=== PATIENT | female | born 1950 | race Two or more races ===

== ENCOUNTER 2025-05-17 15:42 | Outpatient (CLI) | payer MEDICARE, BC | END 2025-05-17 17:00 | disposition home or self-care (01) | LOC: Rad HDHVI 15:42 | PROVIDERS: ATTEND Internal Medicine Cardiovascular Disease | DX: Z01.810 Encounter for preprocedural cardiovascular examination (principal); I35.1 Nonrheumatic aortic (valve) insufficiency | CPT/HCPCS: 93306 ==

== ENCOUNTER 2025-05-23 09:05 | Outpatient (CLI) | payer MEDICARE, BC ==
[~2025-05-23] VITALS: Ht 152.4 cm; Wt 70.8 kg
== END 2025-05-23 17:00 | disposition home or self-care (01) ==
LOC: Rad HDHVI 09:05
PROVIDERS: ATTEND Internal Medicine Cardiovascular Disease
DX: Z01.810 Encounter for preprocedural cardiovascular examination (principal); I10 Essential (primary) hypertension; I49.1 Atrial premature depolarization; R00.0 Tachycardia, unspecified; E78.00 Pure hypercholesterolemia, unspecified; J45.909 Unspecified asthma, uncomplicated; Z82.49 Family history of ischemic heart disease and other diseases of the circulatory system
CPT/HCPCS: 78452; 93017; A9500; 96374

== ENCOUNTER 2025-06-13 07:23 | Inpatient (IN) | payer MEDICARE, BC ==
[2025-06-08 15:43] LABS: Hematocrit 36.7 % (36.0-46.0); Hemoglobin 12.4 g/dL (12.2-16.2); Mean Corpuscular Hemoglobin 28.7 pg (28.0-32.0); Mean Corpuscular Volume 84.9 fL (80.0-100.0); Nucleated Red Blood Cells % 0.1 %
[2025-06-08 15:52] LABS: Urine Protein, UAD TRACE (Negative)
[2025-06-08 16:05] LABS: INR 0.97 (0.9-1.15); Partial Thromboplastin Time 25.4 SEC (24.5-34.5); Prothrombin Time 10.3 sec (9.3-11.8)
[2025-06-08 16:22] LABS: Alanine Aminotransferase 23 U/L (7-40); Albumin 4.6 g/dL (3.2-4.8); Alkaline Phosphatase 82 U/L (46-116); Anion Gap 11 (5-15); BUN/Creatinine Ratio 21.1 (10.0-20.0); Bilirubin, Total 0.5 mg/dL (0.2-1.0); Blood Urea Nitrogen 16 mg/dL (9-23); Calcium 10.1 mg/dL (8.7-10.4); Carbon Dioxide 28 mmol/L (20-31); Glucose 87 mg/dL (74-106); Potassium 4.3 mmol/L (3.5-5.1); Total Protein 7.2 g/dL (5.7-8.2)
[2025-06-08 16:23] LABS: Chloride 108 mmol/L (98-107); Sodium 147 mmol/L (136-145)
[~2025-06-13] VITALS: Ht 152.4 cm; Wt 70.0 kg
[2025-06-13] VITALS (9 sets, daily range): BP systolic 114–132; BP diastolic 72–85; PULSE 72–98; RESP 12–18; TEMP 98–98.3; O2SAT 96–100
[~2025-06-13 07:23] MED LIST: ALBUAER3 IN; LISI20TA56 PO; LOVA20TA4 PO; MOME1AER3 IN
[2025-06-13] MEDS: ceFAZolin 2 GM/D5W50ml 50 ML IV ONE (07:35)
[2025-06-13] MEDS ORDERED: MIDAZOLAM HCL 2MG/2ML 2ml VIAL (1mg/ml) ONE (07:49)
[2025-06-13] MEDS ORDERED: HYDROmorphone HCL 2 MG/ML VL/or syr ONE (07:49)
[2025-06-13] MEDS ORDERED: fentaNYL CITRATE 100 MCG/2 ML VL ONE (07:49)
[2025-06-13] MEDS ORDERED: ROCURONIUM 10MG/ML 10ML VIAL IV ONE (07:50)
[2025-06-13] MEDS ORDERED: KETAMINE 50mg/ML 1ml syringe ONE (07:50)
[2025-06-13] MEDS ORDERED: GLYCOPYRROLATE 0.2 MG/ML 1ML VIAL ONE (07:50)
[2025-06-13] MEDS ORDERED: PHENYLEPHRINE HCL 10 MG/ML VL ONE (07:50)
[2025-06-13] MEDS ORDERED: PROPOFOL 10 MG/ML 20 ML IV ONE (07:50)
[2025-06-13] MEDS ORDERED: ONDANSETRON HCL 4 MG/2 ML VIAL ONE (07:50)
[2025-06-13] MEDS ORDERED: LIDOCAINE 2% (LOCAL ANESTH.) PF 5ml SDV ONE (07:50)
[2025-06-13] MEDS: BUPIVACAINE 0.5% P/F INJ 10 ML VIAL ONE (08:41)
[2025-06-13] MEDS: LIDOCAINE W/ EPINEPHRINE 1% 20ML VIAL ONE (08:41)
[2025-06-13] MEDS ORDERED: SUGAMMADEX 200mg/2ml Vial (100MG/ML) IV ONE (09:11)
[2025-06-13] MEDS: D5W/SOD CHL 0.45%/KCL 20MEQ 1,000 ML IV SCH (09:30)
[2025-06-13] MEDS ORDERED: HYDROmorphone HCL 2 MG/ML VL/or syr IV PRN ×2 (09:30→10:15)
[2025-06-13] MEDS ORDERED: ONDANSETRON HCL 4 MG/2 ML VIAL IV PRN (09:30)
[2025-06-13] MEDS: PANTOPRAZOLE 40 MG/10 ML VIAL INJ IV SCH (10:00)
--- NOTE | 2025-06-13 10:17 | DVHOP ---
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 SURGEON: Geoff Garcia MD CLIENT TECHNICAL PROFESSIONAL: Dg Villa. ANESTHESIA: General endotracheal. ANESTHESIOLOGIST: Dr. Lopez. PROCEDURES: Left mastectomy and left axillary lymph node sampling. DESCRIPTION OF PROCEDURE: Under adequate anesthesia, with ____ prepped and draped and infiltrated with 0.25% Marcaine and 0.5% Xylocaine with epinephrine mixture, incision was made centered around the nipple-areolar complex of the left breast, with a palpable lesion included in the field of dissection. The incision was deepened with electrocautery through adipose tissue. The breast tissue was from the surrounding skin. The mass in the left breast was very adjacent to the skin and necessitated very thin flap formation. The patient's breast tissue was then traced onto the anterior chest wall and elevated from the pectoral muscles. Dissection was carried out medially, inferiorly, superiorly, and laterally in a customary fashion. The breast was removed and marked with a long suture at the 12 o'clock and a short suture at the 3 o'clock location and submitted for histopathologic examination. Through the same incision, the left axillary sampling was conducted. Several adipose tissue surrounded with what was felt to be lymph nodes were sampled and submitted for histopathologic examination. Subsequently, the wound was irrigated with warm saline, which was aspirated. Two Kian Art drains were inserted through a separate incision and secured with a 2-0 nylon suture. Closure accomplished using Monocryl sutures, Dermabond glue and Steri-Strips. The patient remained stable throughout the procedure and left the operating room following an accurate needle and sponge count. No family members were present in the waiting room. MD DUANE Gutierrez/KAI/VIC TID: [id number] RECEIPT: [id number]
[2025-06-13] MEDS: ACETAMINOPHEN IV 100 ML IV ONE (10:34)
[2025-06-13] MEDS: ACETAMINOPHEN IV 1000 MG/100ML (10MG/ML) IV ONE (10:39)
[2025-06-13] MEDS: ONDANSETRON HCL 4 MG/2 ML VIAL IV PRN (11:44)
[2025-06-13] MEDS ORDERED: NITROGLYCERIN 0.4 MG SL TAB SL PRN (11:45)
[2025-06-13] MEDS ORDERED: MORPHINE SULFATE INJ 2 MG/ml SYRG IV PRN (11:45)
--- NOTE | 2025-06-13 11:58 | DVHHP2 ---
Review of Systems Allergies: Coded Allergies: Codeine (Unverified Allergy, Intermediate, rash, 06/08/25) Doxycycline (Verified Allergy, Unknown, 06/13/25) Medications Current Medications Medications Dose Ordered Sig/Jess Route Start Time Stop Time Status Last Admin Dose Admin Potassium Chloride/Dextrose/ Sod Cl 1,000 ml @ 100 mls/hr Q10H IV 06/13/25 09:30 Cefazolin Sodium/ Dextrose 50 ml @ 50 mls/hr Q8HR IV 06/13/25 14:00 Hydromorphone HCl 1 mg Q3HPRN PRN IV 06/13/25 09:30 Ondansetron HCl 4 mg Q4HPRN PRN IV 06/13/25 09:30 Pantoprazole Sodium 40 mg DAILY IV 06/13/25 10:00 Oxycodone HCl 5 mg ONCE PRN PO 06/13/25 10:15 Nitroglycerin 0.4 mg Q5MINP PRN SL 06/13/25 11:45 UNV Morphine Sulfate 2 mg Q30M PRN IV 06/13/25 11:45 UNV Exam Vital Signs Vital Signs Date Time Temp Pulse Resp B/P (MAP) Pulse Ox O2 Delivery O2 Flow Rate FiO2 06/13/25 11:18 Nasal Cannula 4.0 98 06/13/25 11:14 71 12 156/78 (104) 99 06/13/25 09:59 97.7 97.7 Labs/Xrays Labs Test 06/08/25 14:52 Range/Units White Blood Count 5.8 4.4-10.8 10^3/uL Red Blood Count 4.32 4.0-5.20 10^6/uL Hemoglobin 12.4 12.2-16.2 g/dL Hematocrit 36.7 36.0-46.0 % Mean Corpuscular Volume 84.9 80.0-100.0 fL Mean Corpuscular Hemoglobin 28.7 28.0-32.0 pg Mean Corpuscular Hemoglobin Concent 33.9 32.0-36.0 g/dL Red Cell Distribution Width 13.9 11.8-14.3 % Platelet Count 215 140-450 10^3/uL Mean Platelet Volume 8.0 6.9-10.8 fL Neutrophils (%) (Auto) 61.4 37.0-80.0 % Lymphocytes (%) (Auto) 27.4 10.0-50.0 % Monocytes (%) (Auto) 6.6 0.0-12.0 % Eosinophils (%) (Auto) 3.8 0.0-7.0 % Basophils (%) (Auto) 0.8 0.0-2.0 % Neutrophils # (Auto) 3.6 1.6-8.6 10 ^3/uL Lymphocytes # (Auto) 1.6 0.4-5.4 10 ^3/uL Monocytes # (Auto) 0.4 0-1.3 10 ^3/uL Eosinophils # (Auto) 0.2 0-0.8 10 ^3/uL Basophils # (Auto) 0 0-0.2 10 ^3/uL Nucleated Red Blood Cells 0.1 % Prothrombin Time 10.3 9.3-11.8 sec Prothrombin Time INR 0.97 0.9-1.15 Activated Partial Thromboplast Time 25.4 24.5-34.5 SEC Urine Color Yellow Yellow Urine Clarity Clear Clear Urine pH 5.5 5.0-9.0 Urine Specific [place] 1.026 1.001-1.035 Urine Protein Trace H Negative Urine Ketones Negative Negative Urine Blood Negative Negative /uL Urine Nitrite 1+ H Negative Urine Bilirubin Negative Negative Urine Urobilinogen Normal Negative mg/dL Urine Leukocyte Esterase Trace Negative /uL Urine RBC 2 0 - 4 /hpf Urine Microscopic WBC 8 H 0-5 /HPF Urine Squamous Epithelial Cells Mod <5 /hpf Urine Calcium Oxalate Crystals Mod None Seen Urine Bacteria Mod H None Seen /hpf Urine Hyaline Casts Few 0 - 2 /lpf Urine Mucus Few None Seen Urine Glucose Normal Normal mg/dL Sodium Level 147 H 136-145 mmol/L Potassium Level 4.3 3.5-5.1 mmol/L Chloride Level 108 H 98-107 mmol/L Carbon Dioxide Level 28 20-31 mmol/L Anion Gap 11 5-15 Blood Urea Nitrogen 16 9-23 mg/dL Creatinine 0.76 0.550-1.02 mg/dL Glomerular Filtration Rate Calc 81 >90 mL/min BUN/Creatinine Ratio 21.1 H 10.0-20.0 Serum Glucose 87 74-106 mg/dL Calcium Level 10.1 8.7-10.4 mg/dL Total Bilirubin 0.5 0.2-1.0 mg/dL Aspartate Amino Transferase (AST) 26 13-40 U/L Alanine Aminotransferase (ALT) 23 7-40 U/L Alkaline Phosphatase 82 46-116 U/L Total Protein 7.2 5.7-8.2 g/dL Albumin 4.6 3.2-4.8 g/dL SEPSIS Sepsis Screen Physician Orders To Pacu For Recovery (06/13/25 09:22) Oxygen Via Cool Mist Mask (06/13/25 09:22) Navdeep Wrap: (06/13/25 09:22) Enrique To Bulb Suction (06/13/25 09:22) Clear Liq Diet (06/13/25 Breakfast) Incentive Spirometry Q 1hr (06/13/25 09:22) D5w/Sod Chl 0.45%/Kcl 20meq (06/13/25 09:30) Cefazolin 2 Gm/G1m88ql (Ancef) (06/13/25 14:00) Hydromorphone Injection (Dilaudid Inject (06/13/25 09:30) Ondansetron Hcl (Zofran) (06/13/25 09:30) Pantoprazole (Protonix) (06/13/25 10:00) Call/Page Hospitalist/Atten Fo (06/13/25 09:22) Oxygen By Face Mask (06/13/25 10:04) Data Communications Engineer (06/13/25 10:04) Notify Anesth. For Changes: (06/13/25 10:04) Pulse Ox Assessment (06/13/25 10:04) May Have Head Of Bed Up (06/13/25 10:04) Continue Present Iv (06/13/25 10:04) Discharge To Room Per Criteria (06/13/25 10:04) Oxycodone Immediate Rel Tablet (06/13/25 10:15) Admit (06/13/25 11:36) Oxygen By Nasal Cannula (06/13/25 11:36) Nitroglycerin Sublingual (Ntrostat Subli (06/13/25 11:45) Morphine Sulfate Injection (06/13/25 11:45) Stat Ekg For Chest Pain (06/13/25 11:36) Notify Md Of Changes From Base (06/13/25 11:36) Periodicals Library Assistant For 24 Hours (06/13/25 11:36) Emergency Dysrhythmia Protocol (06/13/25 11:36) Rhythm Strips Once Every Shift (06/13/25 11:36) Tramadol Hcl (Ultram) (06/13/25 12:00) Vital Signs Date Time Temp Pulse Resp B/P (MAP) Pulse Ox O2 Delivery O2 Flow Rate FiO2 06/13/25 11:18 Nasal Cannula 4.0 98 06/13/25 11:15 Nasal Cannula 6.0 82 06/13/25 11:14 71 12 156/78 (104) 99 06/13/25 10:44 74 12 164/46 (85) 100 06/13/25 10:29 69 12 144/74 (97) 100 06/13/25 10:14 65 12 136/72 (93) 100 06/13/25 10:09 66 12 146/74 (98) 100 06/13/25 10:04 77 12 158/79 (105) 100 06/13/25 09:59 97.7 76 12 223/73 (123) 100 97.7 06/13/25 07:28 97.7 61 20 154/70 (98) 99 97.7 Medications Medications Dose Ordered Sig/Jess Route Start Time Stop Time Status Last Admin Dose Admin Acetaminophen 1,000 mg ONCE ONCE IV 06/13/25 10:15 06/13/25 10:31 DC 06/13/25 10:39 1,000 MG Bupivacaine HCl 10 ml STK-MED ONCE .ROUTE 06/13/25 07:42 06/13/25 07:37 DC 06/13/25 08:41 10 ML Lidocaine/ Epinephrine 20 ml STK-MED ONCE .ROUTE 06/13/25 07:42 06/13/25 07:38 DC 06/13/25 08:41 10 ML Ondansetron HCl 4 mg ONCE PRN IV 06/13/25 10:15 06/13/25 10:31 DC 06/13/25 11:44 4 MG Assessment/Plan Assessment/Plan SEE DICTATED NOTE Plan discussed with: Patient My Orders Orders - NESHA DALTON MD Procedure Category Date Status Time Admit ADMIT 06/13/25 Transmitted 11:36 Oxygen By Nasal RT 06/13/25 Transmitted Cannula 11:36 Nitroglycerin PHA 06/13/25 Logged Sublingual (Ntrostat 11:45 Morphine Sulfate PHA 06/13/25 Logged Injection 11:45 Stat Ekg For Chest DIANE 06/13/25 In Process Pain 11:36 Notify Md Of Changes [facility] 06/13/25 In Process From Base 11:36 Periodicals Library Assistant For [facility] 06/13/25 In Process 24 Hours 11:36 Emergency Dysrhythmia [facility] 06/13/25 In Process Protocol 11:36 Rhythm Strips Once [facility] 06/13/25 In Process Every Shift 11:36 Tramadol Hcl (Ultram) [facility] 06/13/25 Verified 12:00 Date of Service: Jun 13, 2025 Billing Provider: NESHA DALTON MD Common Visit Codes: [id number] INP/OBS CARE (HIGH) Secondary Visit Codes: [id number] CARE PLAN 30 MINUTES NESHA DALTON MD Jun 13, 2025 11:58
[2025-06-13] MEDS ORDERED: ACETAMINOPHEN 325 MG TAB PO PRN (12:00)
[2025-06-13] MEDS ORDERED: hydrALAZINE HCL 20 MG/ML VL IV PRN (12:00)
--- NOTE | 2025-06-13 12:08 | DVHHP ---
ADMIT DATE: 06/13/2025 HISTORY OF PRESENT ILLNESS: The patient is a 75-year-old lady who underwent surgery on the left breast for left mastectomy for breast cancer. The patient at this time denies any significant pain. No shortness of breath, nausea or vomiting. REVIEW OF SYSTEMS: Review of rest of systems is otherwise currently negative. PAST MEDICAL HISTORY: Significant for hypertension and hyperlipidemia. MEDICATIONS: Include lisinopril and lovastatin. ALLERGIES: DOXYCYCLINE AND CODEINE. SOCIAL HISTORY: Denies smoking or alcohol. FAMILY HISTORY: Negative. PHYSICAL EXAMINATION: GENERAL: The patient is awake and alert. VITAL SIGNS: Temperature of 97.7, pulse 71 per minute, blood pressure is 156/78. SHEENT: Unremarkable. NECK: There is no JVD. No pedal edema. LUNGS: Equal bilaterally. No added sounds. CARDIOVASCULAR SYSTEM: S1 and S2 are regular without murmurs. ABDOMEN: Soft. There is no organomegaly. NEUROLOGIC: Nonfocal. At the site of the left breast surgery, the patient has a dressing in place with 2 [place] drains. ASSESSMENT AND PLAN: * Hypertension for which she will be placed on as-needed hydralazine. * Hyperlipidemia. * Obesity. * Status post left mastectomy for breast cancer for which she will be placed on pain medication and IV fluids. ADVANCED CARE PLANNING: The patient is a FULL CODE- Time spent was 17 minutes. MD LEWIS Hoffman/GERRY TID: [id number] RECEIPT: [id number] MTD
[2025-06-13] MEDS: PROCHLORPERAZINE EDISYLATE 5 MG/ML 2ML VIAL IV ONE (12:30)
[2025-06-13] MEDS: ceFAZolin 2 GM/D5W50ml 50 ML IV SCH (16:00)
[2025-06-13] MEDS ORDERED: LISI10TA34 PO (17:01)
[2025-06-14] VITALS (8 sets, daily range): BP systolic 134–156; BP diastolic 65–87; PULSE 72–97; RESP 16–20; TEMP 97.4–98.4; O2SAT 94–100
[2025-06-14 06:48] LABS: Hematocrit 35.0 % (36.0-46.0); Hemoglobin 11.6 g/dL (12.2-16.2); Mean Corpuscular Hemoglobin 28.8 pg (28.0-32.0); Mean Corpuscular Volume 87.0 fL (80.0-100.0); Nucleated Red Blood Cells % 0.1 %
[2025-06-14 07:03] LABS: Alanine Aminotransferase 15 U/L (7-40); Albumin 4.3 g/dL (3.2-4.8); Alkaline Phosphatase 79 U/L (46-116); Anion Gap 10 (5-15); BUN/Creatinine Ratio 13.9 (10.0-20.0); Blood Urea Nitrogen 11 mg/dL (9-23); Calcium 9.3 mg/dL (8.7-10.4); Carbon Dioxide 25 mmol/L (20-31); Potassium 4.9 mmol/L (3.5-5.1); Sodium 144 mmol/L (136-145); Total Protein 6.8 g/dL (5.7-8.2)
[2025-06-14 07:04] LABS: Bilirubin, Total 0.4 mg/dL (0.2-1.0); Chloride 109 mmol/L (98-107); Glucose 107 mg/dL (74-106)
--- NOTE | 2025-06-14 11:08 | DVHPN2 ---
Progress Note Date Seen: Jun 14, 2025 Medical Necessity Reason Pt with a Central, PICC or Fol: No Subjective Patient reports: No new complaints Review of Systems: HEENT:Normal, CVS:Normal, RESPIRATORY:Normal, GI:Normal, :Normal, MSK:Normal, NEURO:Normal Objective vital signs Vital Sign Date Time Temp Pulse Resp B/P (MAP) Pulse Ox O2 Delivery O2 Flow Rate FiO2 06/14/25 09:00 98.4 72 16 142/65 (90) 95 98.4 06/13/25 20:00 Nasal Cannula* 4 36 Total Intake and Output 06/13/25 06/13/25 06/14/25 15:00 23:00 07:00 Intake Total 100 ml 50 ml 450 ml Output Total 40 ml Balance 60 ml 50 ml 450 ml medications Current Medications Medications Dose Ordered Sig/Jess Route Start Time Stop Time Status Last Admin Dose Admin Potassium Chloride/Dextrose/ Sod Cl 1,000 ml @ 100 mls/hr Q10H IV 06/13/25 09:30 06/14/25 05:12 100 MLS/HR Cefazolin Sodium/ Dextrose 50 ml @ 50 mls/hr Q8HR IV 06/13/25 14:00 06/14/25 05:12 50 MLS/HR Hydromorphone HCl 1 mg Q3HPRN PRN IV 06/13/25 09:30 Ondansetron HCl 4 mg Q4HPRN PRN IV 06/13/25 09:30 Pantoprazole Sodium 40 mg DAILY IV 06/13/25 10:00 Oxycodone HCl 5 mg ONCE PRN PO 06/13/25 10:15 Nitroglycerin 0.4 mg Q5MINP PRN SL 06/13/25 11:45 Morphine Sulfate 2 mg Q30M PRN IV 06/13/25 11:45 Tramadol HCl 50 mg Q6HP PRN PO 06/13/25 12:00 Acetaminophen 650 mg Q6HP PRN PO 06/13/25 12:00 Hydralazine HCl 10 mg Q6HP PRN IV 06/13/25 12:00 Examination: GENERAL:Normal, HEENT:Normal, NECK:Normal, LUNGS:Normal, CVS:Normal, ABDOMEN:Normal, MSK:Normal, MSK:Abnormal (left drains+), SKIN:Normal, NEURO:Normal, :Normal laboratory and microbiology Laboratory Tests 06/14/25 05:06 Test 06/14/25 05:06 Range/Units Serum Glucose 107 H 74-106 mg/dL Problem List/Assessment/Plan Problem List/Assessment/Plan * Hypertension for which she will be placed on as-needed hydralazine, lisinopril * Hyperlipidemia. * Obesity. * Status post left mastectomy for breast cancer for which she will be placed on pain medication and IV fluids. ADVANCED CARE PLANNING: The patient is a FULL CODE-Time spent was 17 minutes. Plan discussed with: Patient My Orders My Orders Orders - NESHA DALTON MD Procedure Category Date Status Time Admit ADMIT 06/13/25 Transmitted 11:36 Oxygen By Nasal RT 06/13/25 Transmitted Cannula 11:36 Nitroglycerin [facility] 06/13/25 In Process Sublingual (Ntrostat 11:45 Morphine Sulfate [facility] 06/13/25 In Process Injection 11:45 Stat Ekg For Chest [facility] 06/13/25 In Process Pain 11:36 Notify Md Of Changes [facility] 06/13/25 In Process From Base 11:36 Student Union Consultant For [facility] 06/13/25 In Process 24 Hours 11:36 Emergency Dysrhythmia [facility] 06/13/25 In Process Protocol 11:36 Rhythm Strips Once [facility] 06/13/25 In Process Every Shift 11:36 Tramadol Hcl (Ultram) [facility] 06/13/25 In Process 12:00 Acetaminophen Tablet [facility] 06/13/25 In Process (Tylenol Tablet) 12:00 Hydralazine Injection [facility] 06/13/25 In Process (Apresoline Inject 12:00 D5 1/2 Ns Potassium PHA 06/14/25 Transmitted 20meq 11:00 2 Gm Sodium Diet DIET 06/14/25 Transmitted Lunch Lisinopril Tablet [facility] 06/14/25 Transmitted (Zestril Tablet) 11:00 Lisinopril Tablet PHA 06/15/25 Transmitted (Zestril Tablet) 10:00 * Drafting Layout Worker CONS 06/14/25 Transmitted Consult Date of Service: Jun 14, 2025 Billing Provider: NESHA DALTON MD Common Visit Codes: [id number] INP/OBS CARE(HIGH) Secondary Visit Codes: [id number] CARE PLAN 30 MINUTES NESHA DALTON MD Jun 14, 2025 11:08
[2025-06-14] MEDS: LISINOPRIL 5 MG TAB PO ONE (13:01)
[2025-06-14] MEDS: D5W/SOD CHL 0.45%/KCL 20MEQ 1,000 ML IV SCH (13:03)
[2025-06-15 01:00] VITALS: BP 147/71; PULSE 71; RESP 18; TEMP 98.6; O2SAT 95
[2025-06-15 05:00] VITALS: BP 135/80; PULSE 70; RESP 18; TEMP 98; O2SAT 94
[2025-06-15 08:00] VITALS: PULSE 74; PULSE 80; RESP 16; O2SAT 99
[2025-06-15 09:00] VITALS: BP 129/60; PULSE 69; RESP 18; TEMP 97.9; O2SAT 94
[2025-06-15] MEDS: LISINOPRIL 5 MG TAB PO SCH (10:04)
--- NOTE | 2025-06-15 11:08 | DVHDS2 ---
Discharge Summary Date of Admission Jun 13, 2025 at 11:36 Date of Discharge: Jun 15, 2025 Labs/Diagnostic Data: Laboratory Results Test 06/14/25 05:06 06/08/25 14:52 White Blood Count 10.6 10^3/uL (4.4-10.8) Red Blood Count 4.03 10^6/uL (4.0-5.20) Hemoglobin 11.6 g/dL (12.2-16.2) Hematocrit 35.0 % (36.0-46.0) Mean Corpuscular Volume 87.0 fL (80.0-100.0) Mean Corpuscular Hemoglobin 28.8 pg (28.0-32.0) Mean Corpuscular Hemoglobin Concent 33.1 g/dL (32.0-36.0) Red Cell Distribution Width 13.8 % (11.8-14.3) Platelet Count 220 10^3/uL (140-450) Mean Platelet Volume 8.0 fL (6.9-10.8) Neutrophils (%) (Auto) 85.7 % (37.0-80.0) Lymphocytes (%) (Auto) 8.2 % (10.0-50.0) Monocytes (%) (Auto) 6.0 % (0.0-12.0) Eosinophils (%) (Auto) 0.0 % (0.0-7.0) Basophils (%) (Auto) 0.1 % (0.0-2.0) Neutrophils # (Auto) 9.1 10 ^3/uL (1.6-8.6) Lymphocytes # (Auto) 0.9 10 ^3/uL (0.4-5.4) Monocytes # (Auto) 0.6 10 ^3/uL (0-1.3) Eosinophils # (Auto) 0 10 ^3/uL (0-0.8) Basophils # (Auto) 0 10 ^3/uL (0-0.2) Nucleated Red Blood Cells 0.1 % Sodium Level 144 mmol/L (136-145) Potassium Level 4.9 mmol/L (3.5-5.1) Chloride Level 109 mmol/L (98-107) Carbon Dioxide Level 25 mmol/L (20-31) Anion Gap 10 (5-15) Blood Urea Nitrogen 11 mg/dL (9-23) Creatinine 0.79 mg/dL (0.550-1.02) Glomerular Filtration Rate Calc 77 mL/min (>90) BUN/Creatinine Ratio 13.9 (10.0-20.0) Serum Glucose 107 mg/dL (74-106) Calcium Level 9.3 mg/dL (8.7-10.4) Total Bilirubin 0.4 mg/dL (0.2-1.0) Aspartate Amino Transferase (AST) 23 U/L (13-40) Alanine Aminotransferase (ALT) 15 U/L (7-40) Alkaline Phosphatase 79 U/L (46-116) Total Protein 6.8 g/dL (5.7-8.2) Albumin 4.3 g/dL (3.2-4.8) Prothrombin Time 10.3 sec (9.3-11.8) Prothrombin Time INR 0.97 (0.9-1.15) Activated Partial Thromboplast Time 25.4 SEC (24.5-34.5) Urine Color Yellow (Yellow) Urine Clarity Clear (Clear) Urine pH 5.5 (5.0-9.0) Urine Specific [place] 1.026 (1.001-1.035) Urine Protein Trace (Negative) Urine Ketones Negative (Negative) Urine Blood Negative /uL (Negative) Urine Nitrite 1+ (Negative) Urine Bilirubin Negative (Negative) Urine Urobilinogen Normal mg/dL (Negative) Urine Leukocyte Esterase Trace /uL (Negative) Urine RBC 2 /hpf (0 - 4) Urine Microscopic WBC 8 /HPF (0-5) Urine Squamous Epithelial Cells Mod /hpf (<5) Urine Calcium Oxalate Crystals Mod (None Seen) Urine Bacteria Mod /hpf (None Seen) Urine Hyaline Casts Few /lpf (0 - 2) Urine Mucus Few (None Seen) Urine Glucose Normal mg/dL (Normal) Other Laboratory Tests 06/14/25 05:06 Brief Hx & Hospital Course: SEE DICTATED NOTE Condition at Discharge: Fair Final Diagnosis/Problems List BREAST CANCER Discharge Disposition: Home Discharge Instruct/Medications Diet: Cardiac 2g Na,low cholest Activity: No Restrictions, As Tolerated Follow Up/Referral: SCHEDULE APPT WITH DR ANAYA IN 1 WK Medications: RESUME HOME MEDS SCRIPT TO PHARMACY Scheduled Lisinopril (Lisinopril), 10 MG PO DAILY, (Reported) Miscellaneous Medications Albuterol Sulfate (Ventolin Mdi), 90 MCG IN, (Reported) Lovastatin (Lovastatin), Unknown Dose PO, (Reported) Mometasone Furoate-Formoterol (Dulera), 1 AER IN, (Reported) Discontinued Medications Lisinopril (Lisinopril), Unknown Dose PO DAILY, (Reported) Discharge Statement: "Patient was advised to return to the ER or call 911 if any headaches, dizziness, shortness of breath, chest pain, abdominal pain, bleeding, fevers, or worsening of medical condition. Patient was counseled about treatment plan, medications, possible side effects, patientverbalized understanding. All questions were answered to the best of my ability. This discharge took greater then 30 minutes in planning, reviewing documentation, counseling the patient, and discussing with other team members." ASSESSMENT ASSESSMENT Assessment BREAST CANCER Date of Service: Jun 15, 2025 Billing Provider: NESHA DALTON MD Common Visit Codes: [id number]/[id number] DISCH DAY >30min NESHA DALTON MD Jun 15, 2025 11:08
[2025-06-15] MEDS ORDERED: HYDR1TAB97 PO (11:09)
[2025-06-15] MEDS ORDERED: CEPH500T PO (11:09)
[2025-06-15 13:00] VITALS: BP 157/68; PULSE 71; RESP 20; TEMP 98.4; O2SAT 96
--- NOTE | 2025-06-15 13:26 | DVHDS ---
DATE OF DISCHARGE: 06/15/2025 HISTORY OF PRESENT ILLNESS: The patient is a 75-year-old lady, who is admitted after she underwent left mastectomy for breast cancer and has a previous history of hypertension and hyperlipidemia. HOSPITAL COURSE: The patient did well postoperatively. The patient has had control of pain and is tolerating her oral diet. She will now be discharged home to be on [place] p.r.n. for pain and Keflex 500 mg t.i.d. for 7 days. She will follow up with Dr. Garcia in 1 week. FINAL DIAGNOSES: * Hypertension. * Hyperlipidemia. * Obesity. * Status post left mastectomy for breast cancer. Time spent in discharge planning and review of plan with the patient and nursing was 38 minutes. MD LEWIS Hoffman/GARRETT TID: [id number] RECEIPT: [id number]
== END 2025-06-15 14:50 | disposition home or self-care (01) | DRG 581 ==
LOC: SUR 07:23 → OVERFLOW 11:36 → TELE-WESTW 14:17
PROVIDERS: ADMIT Internal Medicine; ATTEND Internal Medicine
PROC: 0HTU0ZZ Resection of Left Breast, Open Approach (ICD-10-PCS; 2025-06-13)
PROC: 07B60ZX Excision of Left Axillary Lymphatic, Open Approach, Diagnostic (ICD-10-PCS; principal; 2025-06-13 08:14)
DX: D05.12 Intraductal carcinoma in situ of left breast (principal); E78.5 Hyperlipidemia, unspecified; I10 Essential (primary) hypertension; E66.9 Obesity, unspecified; Z88.1 Allergy status to other antibiotic agents; Z88.5 Allergy status to narcotic agent; Z68.30 Body mass index [BMI] 30.0-30.9, adult; Z79.899 Other long term (current) drug therapy
CPT/HCPCS: 36415; 80053; 81001; 85025; 85610; 85730; G0378; J0131; J1100; J2003; J2250; J2405; J2470; J2704; J3490